=== PATIENT | female | born 1955 | race Caucasian/White ===

== ENCOUNTER → 2017-03-31 | Outpatient (CLI) | payer MEDICARE ==
[~2017-03-31] MED LIST: ACYC800 PO; ALBIPROI; ALBU90OI INH; AMIO200 PO; AMLO5 PO; AMOCLA875 PO; Aspirin EC81 MG PO; CEFD300 PO; CODACE15; CODACE60 PO; COUMADIN; CYAN1000 PO; DOCU100; DOCU100 PO; DOXY100 PO; ESOM20; EZET10; FERSU300; FLUSAL2505 INH; FLUSAL5005; FLUT220OIA; FLUT220OIA IH; FURO20 PO; FURO40 PO; GABA600 PO; GABA800 PO; GLIM2; GLIM2 PO; GLIM4 PO; HYDACE5 PO; HYDGUAL120 PO; HYDPAM25; HYOS.125; LEVOTHYROXINE PO; LEVSOD125 PO; LISI5 PO; METF500; METF500 PO; METO25ER PO; METO50 PO; NAPR500 PO; NATALCARE PLUS; NEBI5 PO; NIAC500ER; PARO20; PARO30; PARO30 PO; PENVK500 PO; POTA10T PO; PRAV20; RAMI2.5; RAMI5; RANI150; RANI150 PO; RXHYDACE PO; RXHYDGUAS PO; SALM50IP; SENN187 PO; SENNA-GEN; SIMV40 PO; SUCR1; TIOT18; WARF2 PO; WARF3 PO; WARF4 PO; WARF5 PO; WARF7.5; ZOLP5 PO
[2017-03-31 14:39] LABS: Hematocrit 39.8 % (33.0-51.0); Hemoglobin 12.8 g/dL (11.5-16.0)
[2017-03-31 14:44] LABS: Albumin, Blood 3.5 g/dL (3.4-5.0); Anion Gap 7 mmol/L (6-16); Blood Urea Nitrogen 48 mg/dL (8-24); Bun/Creatinine Ratio 28.1 (12.0-20.0); CO2, Blood 26 mmol/L (21-32); Calcium, Blood 8.9 mg/dL (8.5-10.1); Chloride, Blood 107 mmol/L (98-108); Creatinine, Blood 1.71 mg/dL (0.40-1.00); Glomerular Filtration Rate 32 (60-); Glucose, Blood 114 mg/dL (70-99); Phosphorus, Blood 3.4 mg/dL (2.5-4.9); Potassium, Blood 4.9 mmol/L (3.5-5.5); Sodium, Blood 140 mmol/L (136-145)
== END | disposition home or self-care (01) ==
LOC: OLS 11:04
PROVIDERS: Internal Medicine
DX: E55.9 Vitamin D deficiency, unspecified (principal); N18.3 Chronic kidney disease, stage 3 (moderate); D63.1 Anemia in chronic kidney disease; I95.9 Hypotension, unspecified
CPT/HCPCS: 36415; 80069; 82306; 83970; 85014; 85018

== ENCOUNTER 2018-01-20 12:18 | Emergency (ER) | payer MEDICARE ==
[~2018-01-20] VITALS: Ht 160 cm; Wt 136.1 kg
[2018-01-20 12:35] LABS: Calcium, Ionized (POC) 1.08 mmol/L (1.10-1.46); Chloride (POC) 103 mmol/L (98-108); Creatinine (POC) 2.2 mg/dL (0.6-1.0); Glucose (ISTAT POC) 183 mg/dL (70-99); Hemoglobin (POC) 13.3 g/dL (12.0-16.0); Sodium (POC) 139 mmol/L (135-148); Total CO2 (POC) 21 mmol/L (21-32)
== END 2018-01-20 12:31 ==
LOC: ER 12:18
PROVIDERS: Emergency Medicine
DX: I46.9 Cardiac arrest, cause unspecified (principal); I25.2 Old myocardial infarction; E11.9 Type 2 diabetes mellitus without complications; J44.9 Chronic obstructive pulmonary disease, unspecified; I25.10 Atherosclerotic heart disease of native coronary artery without angina pectoris; E03.9 Hypothyroidism, unspecified; K21.9 Gastro-esophageal reflux disease without esophagitis; Z88.5 Allergy status to narcotic agent; Z88.6 Allergy status to analgesic agent; Z88.8 Allergy status to other drugs, medicaments and biological substances; Z79.899 Other long term (current) drug therapy; Z79.82 Long term (current) use of aspirin; Z79.51 Long term (current) use of inhaled steroids; Z86.73 Personal history of transient ischemic attack (TIA), and cerebral infarction without residual deficits; Z87.891 Personal history of nicotine dependence
CPT/HCPCS: 36415; 80047; 85014; 92950; 96374; 96375; 99285-25